=== PATIENT | male | born 1960 | race Caucasian/White ===

== ENCOUNTER 2024-04-15 06:28 | Day surgery (SDC) | payer BC, SELFPAY ==
[2024-04-15] VITALS (8 sets, daily range): BP systolic 96–119; BP diastolic 70–88; PULSE 70–79; RESP 14–16; TEMP 36.1–36.6; O2SAT 96–100; BMI 27.8
[2024-04-15] MEDS: Lactated Ringers 1,000 ML 15 ML IV (06:48)
--- NOTE | 2024-04-15 07:07 | PRE.ANES_ITS ---
ASA Classification* ASA Classification ASA Classification: 2 Assessment & Plan Anesthesia* Anesthesia Assessment Anesthesia Assessment: Discussed sedation and/or anesthesia options, risks, benefits, and alternatives with patient/parents/legal guardian/POA. Questions invited. The patient/parents/legal guardian/POA seems to understand and agrees to proceed with anesthesia plan. Reviewed the physical assessment, medical history, allergy history and patient home medications list prior to surgery/procedure/anesthetic and documented any changes. Performed airway and anesthesia risk assessments. 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 When Was Last Pacemaker Check QUESTION #4 FULL TEXT: You/Your Family Experience fever (hyperthermia) with Anesthesia Last Oral Intake Last Oral intake: Last Oral Intake NPO since 03:00 04/15/24 06:42 Meds taken in AM with sips of water? Meds patient instructed to take am of surgery PONV PONV - packaging technician: PONV - packaging technician Female No 04/10/24 09:40 HX of Motion Sickness No 04/10/24 09:40 HX of N/V After Surgery No 04/10/24 09:40 Non-Smoker No 04/10/24 09:40 Duration of Surgery greater No 04/10/24 09:40 than 60 minutes Number of Risk Factors PONV Score Height & Weight Height & Weight: Anesthesia: Height & Weight Height 5 ft 8 in 04/15/24 06:42 Weight: 83.007 kg 04/15/24 06:42 Body Mass Index (BMI) 27.8 04/15/24 06:42 Respiratory Assessment Respiratory Assessment - packaging technician: Respiratory Tract Infection Hx - packaging technician Hx Respiratory Tract Infection No 04/10/24 09:40 STOP Sleep Apnea STOP Sleep Apnea - packaging technician: STOP Sleep Apnea - packaging technician Hx Hypertension No 04/10/24 09:40 Hx Sleep Apnea No 04/10/24 09:40 CPAP BIPAP Do you snore loudly (louder No 04/10/24 09:40 than talking or can be heard Do you often feel tired/ No 04/10/24 09:40 fatigued/ sleepy during daytime? Has anyone observed you stop No 04/10/24 09:40 breathing during sleep? STOP Results Negative 04/10/24 09:40 QUESTION #5 FULL TEXT : Do you snore loudly (louder than talking or can be heard through closed doors)? 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 Specify any problems Hx of Preganancy in last 3 No 04/10/24 09:40 Months Nurse Filling Out Transfusion SFRANTZ 04/10/24 09:40 & Questions: Date: 04/10/24 04/10/24 09:40 Time: 09:43 04/10/24 09:40 Patient unable to answer at this time (ie. confused, unrespo /Reproduction History /Reproductive History - packaging technician: /Reproductive Hx- packaging technician Hx Now No 04/10/24 09:40 Gestational Age (in weeks): EDC: Hx Hx Para Hx Section SAB No 04/10/24 09:40 Active Medications Active Medications: Current Medications Generic Name Dose Route Start Last Admin Trade Name Emily PRN Reason Stop Dose Admin Lactated Ringer's 1,000 mls @ 15 mls/hr 04/15/24 06:45 04/15/24 06:48 IV 15 mls/hr .Q48H ABHISHEK Administration PFSH Medical History Wears glasses Non-smoker Hx of fracture Hx of trauma Pre-diabetes Home Medications ?Medication ?Instructions ?Recorded ?Last Taken ?Type NK 02/14/24 Unknown History Allergy/AdvReac Type Severity Reaction Status Date / Time No Known Allergies Allergy Verified 04/15/24 06:41 Surgical History Hx of carpal tunnel repair Hx of colonoscopy Social History household members: spouse current occupational status: employed Smoking Status: Never smoker alcohol intake: current alcohol intake frequency: holidays/special occasions only substance use type: does not use Review of Systems (Anesthesia) ROS Narrative System reviewed and no additional complaints, except as documented.
--- NOTE | 2024-04-15 07:43 | HP.PCM_ITS ---
[facility] - General General Date of Admission: 04/15/24 Date of Service: 04/15/24 Chief Complaint: Screening colonoscopy HPI Narrative NAHED GÓMEZ, is a 63 M who presents for screening colonoscopy. He had a glass approximately 10 years ago and it was normal. He is not having abdominal pain. Denies any cramping. Is not any chest pain shortness of breath. He does not take any medicines on a daily basis. He does not have any drug allergies. Overall he is in very good health. [facility] Medical History Wears glasses Non-smoker Hx of fracture Hx of trauma Pre-diabetes Home Medications ?Medication ?Instructions ?Recorded ?Last Taken ?Type NK 02/14/24 Unknown History Allergy/AdvReac Type Severity Reaction Status Date / Time No Known Allergies Allergy Verified 04/15/24 06:41 Surgical History Hx of carpal tunnel repair Hx of colonoscopy Social History household members: spouse current occupational status: employed Smoking Status: Never smoker alcohol intake: current alcohol intake frequency: holidays/special occasions only substance use type: does not use ROS Review of Systems ROS Unobtainable: other Constitutional Constitutional: Denies fatigue, fever(s), poor appetite, weight gain or weight loss ENT HEENT: Denies mouth lesions Cardiovascular Cardiovascular: Denies abdominal bloating, abdominal edema or abdominal pain Respiratory/Chest Respiratory/Chest: Denies change in mental status, change in phlegm color, chest congestion or chest tightness Gastrointestinal Gastrointestinal: Denies belching, bloating, change in bowel habits, change in stool character, chewing difficulty, coffee ground emesis, constipation, cramping, diarrhea, dyspepsia, dysphagia, early satiety, excessive flatus, fecal incontinence, heartburn, hematemesis, hematochezia, hemorrhoids, loose stools, melena, nausea, odynophagia, rectal bleeding, tenesmus, vomiting or weight changes Genitourinary Genitourinary: Denies abdominal discomfort, burning urination or itching Musculoskeletal Musculoskeletal: Reports as per HPI; Denies muscle weakness or myalgias Integumentary Integumentary: Denies jaundice Neurologic Neurologic: Denies lack of coordination or weakness Psychiatric Psychiatric: Denies confusion, depression, memory loss, mood swings, paranoia or suicidal ideation Endocrine Endocrinology: Denies systems reviewed and no addt'l complaints, except as documented Hematologic/Lymphatic Hematologic/Lymphatic: Denies anemia, easy bleeding, easy bruising or lymphadenopathy Allergic/Immunologic Allergic/Immunologic: Denies systems reviewed and no addt'l complaints, except as documented Vital Signs Vital Signs Vital Signs: 04/15/24 06:42 04/15/24 06:42 04/15/24 07:07 Temperature 97 F L 97 F L Temperature Source Temporal Pulse Rate 70 70 Respiratory Rate 16 16 Respiratory Pattern Normal Blood Pressure 119/88 H 119/88 H Blood Pressure Mean 98 Blood Pressure Source Monitor Blood Pressure Position Semi-Fowlers Blood Pressure Location Right Arm Pulse Ox 100 100 Oxygen Delivery Method Room Air Weight Weight: 183 lb Body Mass Index (BMI) 27.8 Physical Exam Const alert General Appearance: cooperative Orientation / Consciousness: oriented to person HEENT hearing grossly normal bilaterally Head and Scalp: normal to inspection Face and Sinus: face symmetric Nose: external nose normal Mouth: oral and palatal mucosa normal Eyes conjunctivae normal General Eye: normal appearance of both eyes Neck full ROM General: normal visual inspection Lymph Lymphatic: no lymphadenopathy noted Chest inspection of chest normal and palpation of chest normal Chest: symmetrical chest wall rise Resp normal respiratory effort Effort and Inspection: able to speak in complete sentences Cardio regular rate GI non-distended Percussion: normal to percussion Rectal Exam: deferred Neuro Speech: speech normal Gait (Neuro): normal gait Assessment & Plan Assessment/Plan (1) Encounter for screening for malignant neoplasm of colon: PLAN: He was explained alternatives, risk, benefits including outstanding bleeding, infection, sepsis, perforation, need for emergency surgery . He will have an ASA of 3.
--- NOTE | 2024-04-15 08:05 | PCM.POST.ANE ---
Anesthesia: Postop Eval I Current Vital Signs Temperature: 97.4 F Pulse Rate: 79 Blood Pressure: 98/70 Respiratory Rate: 14 Pulse Ox: 96 Oxygen Delivery Method: Room Air Assessment Airway patent: Yes Spontaneous unlabored respirations: Yes Mental status: Asleep nausea: No Vomiting: No Anesthesia Complication: No Fluid Hydration Crystalloid volume administer (ml): 600 Total IV fluid infused: 600 Progress Note Anesthesia document: Postop Eval 1 completed: Yes
--- NOTE | 2024-04-15 08:08 | OP.COLON_ITS ---
Patient Name: Mason Mann Procedure Date: 04/15/2024 7:40 AM Date of : 1960 Age: 63 Procedure: Colonoscopy Indications: Screening for colorectal malignant neoplasm Providers: Russell Echavarria DO Referring MD: Natalia Castano Md Medicines: Propofol per Anesthesia Patient Profile: This is a 63 year old male. Refer to note in patient chart for documentation of history and physical. Last Colonoscopy: 10 years ago. Complications: No immediate complications. Procedure: Pre-Anesthesia Assessment: - Prior to the procedure, a History and Physical was performed, and patient medications and allergies were reviewed. The risks and benefits of the procedure and the sedation options and risks were discussed with the patient. All questions were answered and informed consent was obtained. Patient identification and proposed procedure were verified by the physician. Mental Status Examination: alert and oriented. Airway Examination: normal oropharyngeal airway and neck mobility. Respiratory Examination: clear to auscultation. CV Examination: normal. Prophylactic Antibiotics: The patient does not require prophylactic antibiotics. Prior Anticoagulants: The patient has taken no anticoagulant or antiplatelet agents. ASA Grade Assessment: III - A patient with severe systemic disease. After reviewing the risks and benefits, the patient was deemed in satisfactory condition to undergo the procedure. The anesthesia plan was to use monitored anesthesia care (MAC). Immediately prior to administration of medications, the patient was re-assessed for adequacy to receive sedatives. The heart rate, respiratory rate, oxygen saturations, blood pressure, adequacy of pulmonary ventilation, and response to care were monitored throughout the procedure. The physical status of the patient was re-assessed after the procedure. After I obtained informed consent, the scope was passed under direct vision. Throughout the procedure, the patient's blood pressure, pulse, and oxygen saturations were monitored continuously. The Colonoscope was introduced through the anus and advanced to the cecum, identified by appendiceal orifice and ileocecal valve. The colonoscopy was performed without difficulty. The patient tolerated the procedure well. The quality of the bowel preparation was good. The terminal ileum, ileocecal valve, appendiceal orifice, and rectum were photographed. Scope In: 7:51:38 AM Scope Withdrawal Time 0 hours 7 minutes 24 seconds Scope Out: 8:01:04 AM Total Procedure Duration Time 0 hours 9 minutes 26 seconds Findings: The perianal and digital rectal examinations were normal. A few small and large-mouthed diverticula were found in the recto-sigmoid colon, sigmoid colon and descending colon. The exam was otherwise without abnormality on direct and retroflexion views. Impression: - Diverticulosis in the recto-sigmoid colon, in the sigmoid colon and in the descending colon. - The examination was otherwise normal on direct and retroflexion views. - No specimens collected. Recommendation: - Discharge patient to home. - Resume previous diet. - Continue present medications. - Repeat colonoscopy in 10 years for screening purposes. Procedure Code(s): --- Professional --- G0121, Colorectal cancer screening; colonoscopy on individual not meeting criteria for high risk CPT copyright 2021 [employer]. All rights reserved. The codes documented in this report are preliminary and upon milieu coordinator review may be revised to meet current compliance requirements. Russell Echavarria DO 04/15/2024 8:07:50 AM This report has been signed electronically. Number of Addenda: 0 Note Initiated On: 04/15/2024 7:40 AM
--- NOTE | 2024-04-15 08:08 | OP.CCLET_ITS ---
04/15/2024 Natalia Castano Md Re : Colonoscopy procedure for Mason Mann Dear Eyad This procedure was performed on Monday, April 15, 2024. My impressions and recommendations are as follows: Impressions : - Diverticulosis in the recto-sigmoid colon, in the sigmoid colon and in the descending colon. - The examination was otherwise normal on direct and retroflexion views. - No specimens collected. Recommendations : - Discharge patient to home. - Resume previous diet. - Continue present medications. - Repeat colonoscopy in 10 years for screening purposes. My findings are described in the full procedure note, which is enclosed. If I can be of further assistance, please feel free to contact me at . Sincerely, Russell Echavarria, 04/15/2024 8:07:50 AM This report has been signed electronically.
--- NOTE | 2024-04-15 08:46 | PCM.POSTANE2 ---
Anesthesia Postop Eval I Sum Postop Eval Completion status Anesthesia document: Postop Eval 1 completed: Yes Anesthesia Postop Eval I Summary Anesthesia Postop Eval I Summary: Anesthesia Postop Eval I: Assessment Summary Airway patent Yes 04/15/24 08:11 [email or web address] Spontaneous unlabored Yes 04/15/24 08:11 [email or web address] respirations Mental status Asleep 04/15/24 08:11 [email or web address] nausea No 04/15/24 08:11 [email or web address] Vomiting No 04/15/24 08:11 [email or web address] Anesthesia Postop Eval I: Fluid Summary Crystalloid volume administer 600 04/15/24 08:11 [email or web address] (ml) Colloids volume administered ( ml) Blood Product volume administered (ml) Total IV fluid infused 600 04/15/24 08:11 [email or web address] Anesthesia Postop Eval I: Summary Notes Anesthesia Complication No 04/15/24 08:11 [email or web address] Anesthesia Complication Comment: Post-operative progress note Anesthesia: Postop Eval II Evaluation Mental status: Awake Pain Level: 0 nausea: No Vomiting: No
== END 2024-04-15 08:49 | disposition home or self-care (01) ==
LOC: EN 06:29 → AC 06:31
PROVIDERS: PCP Family Medicine; Referring Provider Family Medicine; Visit Provider Internal Medicine Gastroenterology
PROC: 0DJD8ZZ Inspection of Lower Intestinal Tract, Via Natural or Artificial Opening Endoscopic (ICD-10-PCS; CPT 45378; principal; 2024-04-15 07:25)
DX: Z12.11 Encounter for screening for malignant neoplasm of colon (principal); K57.30 Diverticulosis of large intestine without perforation or abscess without bleeding
CPT/HCPCS: 45378; J7120; J2405